=== PATIENT | male | born 1995 | race Caucasian/White ===

== ENCOUNTER 2018-06-14 19:38 | Emergency (ER) | payer OTHER ==
[~2018-06-14] VITALS: Ht 185.4 cm; Wt 95.5 kg
[2018-06-14 19:45] VITALS: BP 123/75; TEMP 97.9
[2018-06-14 21:12] VITALS: PULSE 72
== END 2018-06-14 21:12 | disposition home or self-care (01) ==
LOC: EDSEX 19:38 → COL.ER 19:38
DX: T15.91XA Foreign body on external eye, part unspecified, right eye, initial encounter (principal)